=== PATIENT | male | born 1975 | race African-American/Black ===

== ENCOUNTER 2020-09-25 15:45 | Inpatient (IN) ==
[2020-09-25] MEDS ORDERED: SODIUM CHLORIDE 0.9% 1,000 ML IV STA (16:20)
[2020-09-25 17:01] LABS: Hematocrit 43.5 VOL% (42.0-52.0); Immature Granulocytes % 0.4 %; Immature Granulocytes Absolute 0.02 #; Lymphocytes # 0.6 10*3/uL (1.4-4.0); Lymphocytes % 9.6 % (21.2-54.2); Mean Corpuscular HGB Conc 32.2 GM/DL (32-36); Mean Corpuscular Volume 81.9 FL (87-102); Mean Platelet Volume 11.4 FL (9.6-12.0); Monocytes % 7.9 % (1.7-12.7); Neutrophils % 82.1 % (38.7-73.9); Platelet Count 244 T/CUMM (130-400); Red Blood Count 5.31 MC/CUMM (3.8-5.5); Red Cell Distribution Width 12.8 % (9.3-17.3); White Blood Count 5.7 T/CUMM (4-12)
[2020-09-25 17:49] LABS: Lymphocytes 6 % (20-55); Platelet Estimate Normal; Segmented Neutrophils 92 % (50-85); Total Cells Counted 100
[2020-09-25] MEDS ORDERED: LEVOFLOXACIN INJ 750 MG in PREMIX 1 EACH IV STA (18:12)
[2020-09-25 18:19] LABS: Alanine Aminotransferase 44 U/L (16-61); Albumin 3.2 G/DL (3.4-5.0); Alkaline Phosphatase 56 U/L (45-117); Aspartate Amino Transferase 100 U/L (0-37); Blood Urea Nitrogen 10 MG/DL (7-18); Calcium 8.5 MG/DL (8.5-10.1); Carbon Dioxide 26 MMOL/L (21-32); Estimated Glom Filtration Rate 126 ML/MIN; Ferritin 445.6 ng/ml (26-388); Glucose 105 MG/DL (74-106); Potassium 3.2 MMOL/L (3.5-5.1); Sodium 136 MMOL/L (136-145); Total Protein 7.7 G/DL (6.4-8.3); Troponin I < 0.015 NG/ML (0.00-0.045)
[2020-09-25] MEDS ORDERED: GLUCAGON 1 MG VIAL IM PRN (18:53)
[2020-09-25] MEDS ORDERED: ACETAMINOPHEN 325 MG TABLET PO PRN (18:53)
[2020-09-25] MEDS ORDERED: DEXTROSE 50% 25 GM/50 ML VIAL IV PRN (18:53)
[2020-09-25] MEDS ORDERED: ZALEPLON 5 MG CAPSULE PO PRN (18:53)
[2020-09-25] MEDS: SODIUM CHLORIDE 0.9% 1,000 ML IV SCH (22:25)
[2020-09-25] MEDS: ATORVASTATIN 20 MG TABLET PO SCH (22:26)
[2020-09-25] MEDS: FAMOTIDINE 20 MG TABLET PO SCH (22:26)
[2020-09-25] MEDS: ENOXAPARIN 40 MG/0.4 ML SYRINGE SUBCUT SCH (22:26)
[2020-09-25] MEDS: ASCORBIC ACID 500 MG TABLET PO SCH (22:27)
[2020-09-26 05:46] LABS: Eosinophils % 0.2 % (0.00-10.9); Hematocrit 40.1 VOL% (42.0-52.0); Hemoglobin 12.8 GM/DL (14.0-18.0); Immature Granulocytes % 0.7 %; Immature Granulocytes Absolute 0.03 #; Lymphocytes # 0.7 10*3/uL (1.4-4.0); Lymphocytes % 16.8 % (21.2-54.2); Mean Corpuscular HGB Conc 31.9 GM/DL (32-36); Mean Corpuscular Volume 83.4 FL (87-102); Mean Platelet Volume 10.7 FL (9.6-12.0); Monocytes % 10.1 % (1.7-12.7); Neutrophils % 72.2 % (38.7-73.9); Platelet Count 268 T/CUMM (130-400); Red Blood Count 4.81 MC/CUMM (3.8-5.5); Red Cell Distribution Width 12.7 % (9.3-17.3); White Blood Count 4.4 T/CUMM (4-12)
[2020-09-26] MEDS: SODIUM CHLORIDE 0.9% 1,000 ML IV SCH (06:01)
[2020-09-26 06:06] LABS: Platelet Estimate Adequate
[2020-09-26 06:37] LABS: Alanine Aminotransferase 40 U/L (16-61); Albumin 2.8 G/DL (3.4-5.0); Alkaline Phosphatase 49 U/L (45-117); Aspartate Amino Transferase 83 U/L (0-37); Blood Urea Nitrogen 9 MG/DL (7-18); Calcium 8.2 MG/DL (8.5-10.1); Carbon Dioxide 27 MMOL/L (21-32); Estimated Glom Filtration Rate 161 ML/MIN; Ferritin 410.7 ng/ml (26-388); Glucose 101 MG/DL (74-106); Osmolality,Calculated 271.8 MOS/KG (273-304); Potassium 2.7 MMOL/L (3.5-5.1); Sodium 137 MMOL/L (136-145); Total Protein 6.7 G/DL (6.4-8.3); Troponin I < 0.015 NG/ML (0.00-0.045)
[2020-09-26] MEDS: POTASSIUM CHLORIDE 20 MEQ TABLET PO PRN ×4 (07:14→17:29)
[2020-09-26] MEDS: DEXAMETHASONE 4 MG/1 ML VIAL IV SCH (09:20)
[2020-09-26] MEDS: hydroCHLOROthiazide 12.5 MG CAPSULE PO SCH (09:21)
[2020-09-26] MEDS: FAMOTIDINE 20 MG TABLET PO SCH ×2 (09:22→21:08)
[2020-09-26] MEDS: CHOLECALCIFEROL 1,000 UNIT TABLET PO SCH (09:22)
[2020-09-26] MEDS: ASCORBIC ACID 500 MG TABLET PO SCH ×2 (09:22→21:08)
[2020-09-26] MEDS: ZINC GLUCONATE 50 MG TABLET PO SCH (09:22)
[2020-09-26] MEDS: CETIRIZINE 10 MG TABLET PO SCH (09:23)
[2020-09-26] MEDS: SKIN HEALING OINT (AQUAPHOR) 50 GM TUBE TOP SCH (09:26)
[2020-09-26] MEDS ORDERED: REMDESIVIR 200 MG in SODIUM CHLORIDE 0.9% 210 ML IV ONE (13:00)
[2020-09-26] MEDS: PALIPERIDONE 9 MG PO SCH (13:34)
[2020-09-26] MEDS: ENOXAPARIN 40 MG/0.4 ML SYRINGE SUBCUT SCH ×2 (21:00→21:08)
[2020-09-26] MEDS: LEVOFLOXACIN INJ 750 MG in PREMIX 1 EACH IV SCH (21:07)
[2020-09-26] MEDS: ATORVASTATIN 20 MG TABLET PO SCH (21:08)
[2020-09-27] MEDS: ALBUTEROL INHALER 18 GM INH SCH ×4 (01:04→21:56)
[2020-09-27 05:50] LABS: Basophils % 0.1 % (0.0-0.8); Eosinophils % 0.1 % (0.00-10.9); Hematocrit 40.8 VOL% (42.0-52.0); Immature Granulocytes % 0.4 %; Immature Granulocytes Absolute 0.03 #; Lymphocytes # 0.6 10*3/uL (1.4-4.0); Lymphocytes % 8.4 % (21.2-54.2); Mean Corpuscular HGB Conc 31.9 GM/DL (32-36); Mean Corpuscular Volume 82.4 FL (87-102); Mean Platelet Volume 10.6 FL (9.6-12.0); Platelet Count 301 T/CUMM (130-400); Red Blood Count 4.95 MC/CUMM (3.8-5.5); Red Cell Distribution Width 12.9 % (9.3-17.3); White Blood Count 6.9 T/CUMM (4-12)
[2020-09-27 06:35] LABS: Calcium 8.9 MG/DL (8.5-10.1); Osmolality,Calculated 278.4 MOS/KG (273-304); Potassium 3.7 MMOL/L (3.5-5.1); Risk Ratio 2.56; VLDL CHOLESTEROL 8.4 MG/DL
[2020-09-27 07:05] LABS: Sedimentation Rate-Westergren 25 MM/HR (0-15)
[2020-09-27] MEDS: DEXAMETHASONE 4 MG/1 ML VIAL IV SCH (08:25)
[2020-09-27] MEDS: ZINC GLUCONATE 50 MG TABLET PO SCH (08:26)
[2020-09-27] MEDS: ASCORBIC ACID 500 MG TABLET PO SCH ×2 (08:26→21:57)
[2020-09-27] MEDS: hydroCHLOROthiazide 12.5 MG CAPSULE PO SCH (08:26)
[2020-09-27] MEDS: CHOLECALCIFEROL 1,000 UNIT TABLET PO SCH (08:26)
[2020-09-27] MEDS: FAMOTIDINE 20 MG TABLET PO SCH ×2 (08:26→21:57)
[2020-09-27] MEDS: CETIRIZINE 10 MG TABLET PO SCH (08:26)
[2020-09-27] MEDS: SKIN HEALING OINT (AQUAPHOR) 50 GM TUBE TOP SCH (08:27)
[2020-09-27] MEDS: REMDESIVIR 100 MG in SODIUM CHLORIDE 0.9% 100 ML IV SCH (09:24)
[2020-09-27] MEDS ORDERED: BENZONATATE 100 MG CAPSULE PO PRN (11:42)
[2020-09-27] MEDS ORDERED: FUROSEMIDE 40 MG/4 ML VIAL IV ONE (12:07)
[2020-09-27] MEDS ORDERED: POTASSIUM CHLORIDE 20 MEQ TABLET PO ONE (12:29)
[2020-09-27] MEDS: APIXABAN 5 MG TABLET PO SCH ×2 (12:58→21:57)
[2020-09-27] MEDS: PALIPERIDONE 9 MG PO SCH (16:27)
[2020-09-27] MEDS: ONDANSETRON 4 MG/2 ML VIAL IV PRN (17:07)
[2020-09-27] MEDS: ATORVASTATIN 20 MG TABLET PO SCH (21:57)
[2020-09-27] MEDS: LEVOFLOXACIN INJ 750 MG in PREMIX 1 EACH IV SCH (21:57)
[2020-09-27] MEDS: MELATONIN 3 MG TABLET PO PRN (21:59)
[2020-09-28] MEDS: ALBUTEROL INHALER 18 GM INH SCH ×4 (00:35→18:33)
[2020-09-28 06:17] LABS: Basophils % 0.1 % (0.0-0.8); Eosinophils % 0.3 % (0.00-10.9); Hematocrit 43.2 VOL% (42.0-52.0); Immature Granulocytes % 0.6 %; Immature Granulocytes Absolute 0.05 #; Lymphocytes # 0.8 10*3/uL (1.4-4.0); Lymphocytes % 9.4 % (21.2-54.2); Mean Corpuscular HGB Conc 32.4 GM/DL (32-36); Mean Corpuscular Volume 81.7 FL (87-102); Mean Platelet Volume 11.3 FL (9.6-12.0); Monocytes % 8.2 % (1.7-12.7); Neutrophils % 81.4 % (38.7-73.9); Platelet Count 388 T/CUMM (130-400); Red Blood Count 5.29 MC/CUMM (3.8-5.5)
[2020-09-28 06:55] LABS: Calcium 8.6 MG/DL (8.5-10.1); Ferritin 407.5 ng/ml (26-388); Osmolality,Calculated 282.3 MOS/KG (273-304); Potassium 3.5 MMOL/L (3.5-5.1)
[2020-09-28 07:41] LABS: Sedimentation Rate-Westergren 34 MM/HR (0-15)
[2020-09-28] MEDS: DEXAMETHASONE 4 MG/1 ML VIAL IV SCH (08:58)
[2020-09-28] MEDS: ASCORBIC ACID 500 MG TABLET PO SCH ×2 (08:59→21:12)
[2020-09-28] MEDS: CHOLECALCIFEROL 1,000 UNIT TABLET PO SCH (08:59)
[2020-09-28] MEDS: hydroCHLOROthiazide 12.5 MG CAPSULE PO SCH (08:59)
[2020-09-28] MEDS: ZINC GLUCONATE 50 MG TABLET PO SCH (08:59)
[2020-09-28] MEDS: REMDESIVIR 100 MG in SODIUM CHLORIDE 0.9% 100 ML IV SCH (08:59)
[2020-09-28] MEDS: CETIRIZINE 10 MG TABLET PO SCH (08:59)
[2020-09-28] MEDS: FAMOTIDINE 20 MG TABLET PO SCH ×2 (08:59→21:12)
[2020-09-28] MEDS: APIXABAN 5 MG TABLET PO SCH ×2 (09:00→21:13)
[2020-09-28] MEDS ORDERED: INFLUENZA VIRUS VACCINE 0.5 ML SYRINGE IM ONE (09:00)
[2020-09-28] MEDS: SKIN HEALING OINT (AQUAPHOR) 50 GM TUBE TOP SCH (09:00)
[2020-09-28] MEDS: PALIPERIDONE 9 MG PO SCH (09:00)
[2020-09-28] MEDS: MELATONIN 3 MG TABLET PO PRN (21:12)
[2020-09-28] MEDS: LEVOFLOXACIN INJ 750 MG in PREMIX 1 EACH IV SCH (21:13)
[2020-09-28] MEDS: ATORVASTATIN 20 MG TABLET PO SCH (21:13)
[2020-09-29] MEDS: ALBUTEROL INHALER 18 GM INH SCH ×4 (01:05→19:41)
[2020-09-29 05:02] LABS: Basophils % 0.1 % (0.0-0.8); Eosinophils % 0.5 % (0.00-10.9); Hematocrit 42.3 VOL% (42.0-52.0); Hemoglobin 13.7 GM/DL (14.0-18.0); Immature Granulocytes % 0.4 %; Immature Granulocytes Absolute 0.03 #; Lymphocytes # 0.8 10*3/uL (1.4-4.0); Lymphocytes % 9.9 % (21.2-54.2); Mean Corpuscular HGB Conc 32.4 GM/DL (32-36); Mean Corpuscular Volume 81.7 FL (87-102); Mean Platelet Volume 10.9 FL (9.6-12.0); Monocytes % 10.6 % (1.7-12.7); Neutrophils % 78.5 % (38.7-73.9); Platelet Count 389 T/CUMM (130-400); Red Blood Count 5.18 MC/CUMM (3.8-5.5); Red Cell Distribution Width 12.9 % (9.3-17.3); White Blood Count 8.2 T/CUMM (4-12)
[2020-09-29 05:36] LABS: Calcium 8.8 MG/DL (8.5-10.1); Osmolality,Calculated 275.7 MOS/KG (273-304); Potassium 3.7 MMOL/L (3.5-5.1)
[2020-09-29 09:16] LABS: Sedimentation Rate-Westergren 25 MM/HR (0-15)
[2020-09-29] MEDS: ZINC GLUCONATE 50 MG TABLET PO SCH (09:53)
[2020-09-29] MEDS: hydroCHLOROthiazide 12.5 MG CAPSULE PO SCH (09:53)
[2020-09-29] MEDS: CETIRIZINE 10 MG TABLET PO SCH (09:53)
[2020-09-29] MEDS: ASCORBIC ACID 500 MG TABLET PO SCH ×2 (09:53→21:55)
[2020-09-29] MEDS: FAMOTIDINE 20 MG TABLET PO SCH ×2 (09:53→21:55)
[2020-09-29] MEDS: CHOLECALCIFEROL 1,000 UNIT TABLET PO SCH (09:54)
[2020-09-29] MEDS: SKIN HEALING OINT (AQUAPHOR) 50 GM TUBE TOP SCH (09:54)
[2020-09-29] MEDS: DEXAMETHASONE 4 MG/1 ML VIAL IV SCH (09:54)
[2020-09-29] MEDS: APIXABAN 5 MG TABLET PO SCH ×2 (09:54→21:55)
[2020-09-29] MEDS: REMDESIVIR 100 MG in SODIUM CHLORIDE 0.9% 100 ML IV SCH (09:55)
[2020-09-29] MEDS: PALIPERIDONE 9 MG PO SCH (09:55)
[2020-09-29] MEDS: ATORVASTATIN 20 MG TABLET PO SCH (21:55)
[2020-09-29] MEDS: MELATONIN 3 MG TABLET PO PRN (21:55)
[2020-09-29] MEDS: LEVOFLOXACIN INJ 750 MG in PREMIX 1 EACH IV SCH (21:55)
[2020-09-30] MEDS: ALBUTEROL INHALER 18 GM INH SCH ×4 (00:42→18:29)
[2020-09-30 04:44] LABS: Eosinophils % 0.2 % (0.00-10.9); Hematocrit 42.4 VOL% (42.0-52.0); Hemoglobin 13.7 GM/DL (14.0-18.0); Immature Granulocytes % 0.3 %; Immature Granulocytes Absolute 0.03 #; Lymphocytes # 0.9 10*3/uL (1.4-4.0); Lymphocytes % 10.1 % (21.2-54.2); Mean Corpuscular HGB Conc 32.3 GM/DL (32-36); Mean Corpuscular Volume 82.3 FL (87-102); Mean Platelet Volume 10.7 FL (9.6-12.0); Monocytes % 10.3 % (1.7-12.7); Neutrophils % 79.1 % (38.7-73.9); Platelet Count 423 T/CUMM (130-400); Red Blood Count 5.15 MC/CUMM (3.8-5.5); White Blood Count 8.7 T/CUMM (4-12)
[2020-09-30 05:06] LABS: Calcium 8.2 MG/DL (8.5-10.1); Ferritin 375.3 ng/ml (26-388); Osmolality,Calculated 277.5 MOS/KG (273-304)
[2020-09-30 05:47] LABS: Sedimentation Rate-Westergren 28 MM/HR (0-15)
[2020-09-30 07:32] LABS: INR 1.4; PT Patient Result 14.9 SECS (9.8-11.9)
[2020-09-30] MEDS: DEXAMETHASONE 4 MG/1 ML VIAL IV SCH (10:01)
[2020-09-30] MEDS: CETIRIZINE 10 MG TABLET PO SCH (10:02)
[2020-09-30] MEDS: APIXABAN 5 MG TABLET PO SCH ×2 (10:02→20:38)
[2020-09-30] MEDS: ZINC GLUCONATE 50 MG TABLET PO SCH (10:02)
[2020-09-30] MEDS: CHOLECALCIFEROL 1,000 UNIT TABLET PO SCH (10:02)
[2020-09-30] MEDS: PALIPERIDONE 9 MG PO SCH (10:03)
[2020-09-30] MEDS: FAMOTIDINE 20 MG TABLET PO SCH ×2 (10:03→20:38)
[2020-09-30] MEDS: SKIN HEALING OINT (AQUAPHOR) 50 GM TUBE TOP SCH (10:03)
[2020-09-30] MEDS: ASCORBIC ACID 500 MG TABLET PO SCH ×2 (10:03→20:38)
[2020-09-30] MEDS: REMDESIVIR 100 MG in SODIUM CHLORIDE 0.9% 100 ML IV SCH (10:05)
[2020-09-30] MEDS: hydroCHLOROthiazide 12.5 MG CAPSULE PO SCH (10:05)
[2020-09-30] MEDS: ONDANSETRON 4 MG/2 ML VIAL IV PRN (10:35)
[2020-09-30] MEDS: LEVOFLOXACIN INJ 750 MG in PREMIX 1 EACH IV SCH (20:38)
[2020-09-30] MEDS: ATORVASTATIN 20 MG TABLET PO SCH (20:38)
[2020-10-01] MEDS: ALBUTEROL INHALER 18 GM INH SCH ×4 (00:34→18:57)
[2020-10-01 05:55] LABS: Basophils % 0.1 % (0.0-0.8); Eosinophils % 0.3 % (0.00-10.9); Hematocrit 39.3 VOL% (42.0-52.0); Hemoglobin 12.7 GM/DL (14.0-18.0); Immature Granulocytes % 0.5 %; Immature Granulocytes Absolute 0.05 #; Lymphocytes # 1.1 10*3/uL (1.4-4.0); Lymphocytes % 11.4 % (21.2-54.2); Mean Corpuscular HGB Conc 32.3 GM/DL (32-36); Mean Corpuscular Volume 82.4 FL (87-102); Mean Platelet Volume 10.8 FL (9.6-12.0); Monocytes % 10.7 % (1.7-12.7); Platelet Count 455 T/CUMM (130-400); Red Blood Count 4.77 MC/CUMM (3.8-5.5)
[2020-10-01 06:06] LABS: INR 1.4; PT Patient Result 14.3 SECS (9.8-11.9)
[2020-10-01 06:23] LABS: Calcium 8.4 MG/DL (8.5-10.1); Osmolality,Calculated 275.7 MOS/KG (273-304); Potassium 4.2 MMOL/L (3.5-5.1)
[2020-10-01 07:09] LABS: Sedimentation Rate-Westergren 35 MM/HR (0-15)
[2020-10-01] MEDS: DEXAMETHASONE 4 MG/1 ML VIAL IV SCH (10:35)
[2020-10-01] MEDS: CHOLECALCIFEROL 1,000 UNIT TABLET PO SCH (10:36)
[2020-10-01] MEDS: FAMOTIDINE 20 MG TABLET PO SCH ×2 (10:36→20:47)
[2020-10-01] MEDS: hydroCHLOROthiazide 12.5 MG CAPSULE PO SCH (10:36)
[2020-10-01] MEDS: ZINC GLUCONATE 50 MG TABLET PO SCH (10:36)
[2020-10-01] MEDS: CETIRIZINE 10 MG TABLET PO SCH (10:36)
[2020-10-01] MEDS: ASCORBIC ACID 500 MG TABLET PO SCH ×2 (10:36→20:47)
[2020-10-01] MEDS: SKIN HEALING OINT (AQUAPHOR) 50 GM TUBE TOP SCH (10:37)
[2020-10-01] MEDS: APIXABAN 5 MG TABLET PO SCH ×2 (10:37→20:47)
[2020-10-01] MEDS: PALIPERIDONE 9 MG PO SCH (13:10)
[2020-10-01] MEDS: LEVOFLOXACIN INJ 750 MG in PREMIX 1 EACH IV SCH (20:46)
[2020-10-01] MEDS: ATORVASTATIN 20 MG TABLET PO SCH (20:47)
[2020-10-02] MEDS: ALBUTEROL INHALER 18 GM INH SCH ×4 (00:07→19:17)
[2020-10-02 05:51] LABS: Basophils % 0.1 % (0.0-0.8); Eosinophils % 0.2 % (0.00-10.9); Hematocrit 42.1 VOL% (42.0-52.0); Hemoglobin 13.6 GM/DL (14.0-18.0); Immature Granulocytes % 0.5 %; Immature Granulocytes Absolute 0.05 #; Lymphocytes # 1.1 10*3/uL (1.4-4.0); Lymphocytes % 11.3 % (21.2-54.2); Mean Corpuscular HGB Conc 32.3 GM/DL (32-36); Mean Corpuscular Volume 81.7 FL (87-102); Mean Platelet Volume 10.6 FL (9.6-12.0); Monocytes % 9.6 % (1.7-12.7); Neutrophils % 78.3 % (38.7-73.9); Platelet Count 481 T/CUMM (130-400); Red Blood Count 5.15 MC/CUMM (3.8-5.5); Red Cell Distribution Width 12.9 % (9.3-17.3); White Blood Count 10.1 T/CUMM (4-12)
[2020-10-02 05:59] LABS: INR 1.3; PT Patient Result 14.2 SECS (9.8-11.9)
[2020-10-02 06:14] LABS: Calcium 8.5 MG/DL (8.5-10.1); Ferritin 356.2 ng/ml (26-388); Osmolality,Calculated 274.7 MOS/KG (273-304); Potassium 4.6 MMOL/L (3.5-5.1)
[2020-10-02 06:51] LABS: Sedimentation Rate-Westergren 8 MM/HR (0-15)
[2020-10-02] MEDS: ASCORBIC ACID 500 MG TABLET PO SCH ×2 (08:31→21:17)
[2020-10-02] MEDS: FAMOTIDINE 20 MG TABLET PO SCH ×2 (08:31→21:17)
[2020-10-02] MEDS: ZINC GLUCONATE 50 MG TABLET PO SCH (08:31)
[2020-10-02] MEDS: CHOLECALCIFEROL 1,000 UNIT TABLET PO SCH (08:31)
[2020-10-02] MEDS: hydroCHLOROthiazide 12.5 MG CAPSULE PO SCH (08:31)
[2020-10-02] MEDS: APIXABAN 5 MG TABLET PO SCH ×2 (08:31→21:18)
[2020-10-02] MEDS: DEXAMETHASONE 4 MG/1 ML VIAL IV SCH (08:31)
[2020-10-02] MEDS: CETIRIZINE 10 MG TABLET PO SCH (08:31)
[2020-10-02] MEDS: PALIPERIDONE 9 MG PO SCH (08:32)
[2020-10-02] MEDS: SKIN HEALING OINT (AQUAPHOR) 50 GM TUBE TOP SCH (08:32)
[2020-10-02] MEDS: ATORVASTATIN 20 MG TABLET PO SCH (21:17)
[2020-10-02] MEDS: LEVOFLOXACIN INJ 750 MG in PREMIX 1 EACH IV SCH (21:18)
[2020-10-03] MEDS: ALBUTEROL INHALER 18 GM INH SCH ×2 (00:57→06:03)
[2020-10-03] MEDS: hydroCHLOROthiazide 12.5 MG CAPSULE PO SCH (09:08)
[2020-10-03] MEDS: CETIRIZINE 10 MG TABLET PO SCH (09:09)
[2020-10-03] MEDS: APIXABAN 5 MG TABLET PO SCH (09:09)
[2020-10-03] MEDS: FAMOTIDINE 20 MG TABLET PO SCH (09:09)
[2020-10-03] MEDS: CHOLECALCIFEROL 1,000 UNIT TABLET PO SCH (09:09)
[2020-10-03] MEDS: ASCORBIC ACID 500 MG TABLET PO SCH (09:09)
[2020-10-03] MEDS: PALIPERIDONE 9 MG PO SCH (10:43)
[2020-10-03] MEDS: ZINC GLUCONATE 50 MG TABLET PO SCH (10:57)
[2020-10-03] MEDS: DEXAMETHASONE 4 MG/1 ML VIAL IV SCH (10:57)
[2020-10-03] MEDS: SKIN HEALING OINT (AQUAPHOR) 50 GM TUBE TOP SCH (10:59)
[2020-10-03 11:27] VITALS: BP 116/77
== END 2020-10-03 13:56 | disposition home or self-care (01) | DRG 177 ==
LOC: EDBD → EDUNIT# → N.ED 15:45 → N.EDINP 18:56 → SUATTDRO 18:56 → N.EDINP 23:39 → N.2E 09-26 00:10
PROVIDERS: ADMIT Family Medicine; ATTEND Internal Medicine